=== PATIENT | female | born 1960 | race Two or more races ===

== ENCOUNTER 2018-09-01 12:20 | Emergency (ER) | payer BC ==
[~2018-09-01] VITALS: Ht 160 cm; Wt 93.0 kg
[2018-09-01] MEDS ORDERED: cefTRIAXone SOD 1,000 MG VL IM ONE (14:45)
[2018-09-01] MEDS ORDERED: LIDOCAINE 2% (LOCAL ANESTH.) PF 5ml SDV ONE (15:05)
[2018-09-01 15:25] VITALS: BP 137/87
== END 2018-09-01 15:27 | disposition home or self-care (01) ==
LOC: ER 12:33
DX: L03.114 Cellulitis of left upper limb (principal); I10 Essential (primary) hypertension
CPT/HCPCS: 96372; 99283; J0696; J2001